=== PATIENT | male | born 1970 | race Caucasian/White ===

== ENCOUNTER 2017-03-15 09:54 | Emergency (ER) | payer OTHER ==
[2017-03-15] MEDS ORDERED: Sodium Chloride 0.9% 10 ML Syringe FLUSH PRN (10:14)
[2017-03-15] MEDS ORDERED: Sodium Chloride 0.9% 1,000 ML IV ONE (10:15)
[2017-03-15] MEDS ORDERED: HYDROmorphone 1 MG/ML Syringe IVPUSH ONE (10:15)
[2017-03-15] MEDS ORDERED: Ketorolac 30 MG/ML SDV IVPUSH ONE (10:15)
[2017-03-15] MEDS ORDERED: Ondansetron 4 MG/2 ML SDV IVPUSH ONE (10:15)
[2017-03-15 10:56] LABS: CHLORIDE,CL 103 mmol/L (98-107); SODIUM,NA 138 mmol/L (136-145)
[2017-03-15 11:28] VITALS: BP 136/72
[2017-03-15] MEDS ORDERED: Tamsulosin 0.4 MG Cap.ER PO ONE (13:16)
[2017-03-15] MEDS ORDERED: Take Home: Acetaminophen/HYDROcodone 325-10 MG, 5 Tab Pack PO ONE (14:05)
--- NOTE | 2017-03-19 06:09 | ER ---
Date of Service: 03/15/2017 SUBJECTIVE: Delta presents to the emergency room with complaints of severe right lower back/flank pain with radiation into his groin. He states that he was experiencing this intermittently yesterday and states that it has intensified on the morning of his arrival to the emergency room. He also complains of nausea, but no vomiting. He states that he is not experiencing any blood in his stool or urine. He denies any history of kidney stones in the past. His significant other states that he is a "terrible water drinker." PAST MEDICAL HISTORY: 1. Hypothyroidism. 2. Depression. 3. Anxiety. PAST SURGICAL HISTORY: 1. Adenoidectomy and tonsillectomy. 2. Appendectomy. 3. Carpal tunnel surgery. REVIEW OF SYSTEMS: Denies any fever, chills, chest pain, shortness of breath, decreased level of consciousness, or confusion. PHYSICAL EXAMINATION: General: This is a 47-year-old male patient who is in no acute distress. Vital Signs: Blood pressure is 136/72, pulse rate 75, temp is 35.5, and respiratory rate is 16. Skin: Warm, pink, and dry. HEENT. Head is normocephalic, atraumatic. Eyes: PERRLA. Extraocular movements are intact. Ears: TMs are clear. Mouth: Oral mucosa is moist. Lungs: Clear to auscultation. Heart: Regular rate and rhythm. Abdomen: Soft, nontender. There is no hepatosplenomegaly or masses noted. No significant CVA tenderness. Neurologic: He is alert, oriented, and answers all questions appropriately. LABORATORY DATA: WBC is 11.1, hemoglobin is 15.5, and platelets are 192. Chemistry: Sodium is 138, potassium is 4.4, chloride is 103, bicarb is 28, BUN is 15, creatinine is 1.4, GFR is 55, glucose is 128, calcium is 8.7, corrected calcium is 8.94, total bili is 0.5, AST is 27, ALT is 65, alk phos is 94, and total protein is 7.3. Urinalysis reveals a large occult blood, trace ketones, specific gravity is 1.030, negative for bilirubin and nitrates as well as leukocyte esterase. A CT scan of the patient's abdomen and pelvis was obtained that have evidence of a 3-mm stone at the right UVJ. EMERGENCY ROOM COURSE: IV access was established. He was given Dilaudid 1 mg IV as well as Zofran 4 mg IV. He was also given a liter of normal saline and was also given Flomax 0.4 mg p.o. Reported resolution of his symptoms. He remained stable under my care in the emergency room. ASSESSMENT: A 3-mm kidney stone with mild hydronephrosis. PLAN: The patient will be discharged. I did speak with Urology regarding this patient. We will start him on [place] 10/325 with instructions to take 1 to 2 every 4 to 6 hours as needed for pain. Also, started him on Flomax 0.4 mg once daily. Drink plenty of fluids. In addition, he can take ibuprofen 600 mg every 6 hours. All questions were answered. MWK: 03/19/2017 05:19:25 MODL: 03/19/2017 06:02:25 /[id number]
== END 2017-03-15 14:20 | disposition home or self-care (01) ==
LOC: VM.ED 09:54
DX: N13.2 Hydronephrosis with renal and ureteral calculous obstruction (principal); E03.9 Hypothyroidism, unspecified; F32.9 Major depressive disorder, single episode, unspecified; F41.9 Anxiety disorder, unspecified; Z90.49 Acquired absence of other specified parts of digestive tract; Z98.890 Other specified postprocedural states
CPT/HCPCS: 74176; 80053; 81001; 85025; 96361; 96374; 96375; 99284; A9270; J1170; J1885; J2405; J7030

== ENCOUNTER 2022-05-30 08:24 | Day surgery (SDC) | payer OTHER ==
[~2022-05-30 08:24] MED LIST: Lactated Ringers 1,000 ML IV SCH; Sodium Chloride 0.9% 10 ML Syringe FLUSH PRN
[2022-05-30] MEDS ORDERED: Propofol 200 MG/20 ML SDV ONE ×3 (09:26→10:40)
[2022-05-30] MEDS ORDERED: fentaNYL 100 MCG/2 ML SDV ONE (09:27)
[2022-05-30 11:40] VITALS: BP 157/49; PULSE 54
== END 2022-05-30 14:47 | disposition home or self-care (01) ==
LOC: VM.SDS 08:24
PROVIDERS: ATTEND Family Medicine
DX: K63.89 Other specified diseases of intestine (principal); G47.33 Obstructive sleep apnea (adult) (pediatric); E03.9 Hypothyroidism, unspecified; K21.9 Gastro-esophageal reflux disease without esophagitis; M19.90 Unspecified osteoarthritis, unspecified site; E78.2 Mixed hyperlipidemia; F32.A Depression, unspecified; H52.209 Unspecified astigmatism, unspecified eye; Z98.890 Other specified postprocedural states; Z87.891 Personal history of nicotine dependence; Z79.890 Hormone replacement therapy; Z79.899 Other long term (current) drug therapy; Z90.49 Acquired absence of other specified parts of digestive tract
CPT/HCPCS: 00811; 45380; J2704; J3010; J7120

== ENCOUNTER 2024-10-21 18:32 | Emergency (ER) | payer OTHER ==
[2024-10-21 19:10] LABS: BASOPHILS PERCENT AUTO 0.4 % (0.2-1.2); EOSINOPHILS PERCENT AUTO 0.3 % (0.0-4.0); HEMATOCRIT 42.8 % (40.0-52.0); HEMOGLOBIN 15.5 g/dL (14.0-18.0); IMMATURE GRAN ABSOLUTE AUTO 0.01 x10^3/uL (0.00-0.07); LYMPHOCYTES ABSOLUTE AUTO 0.9 x10^3/uL (1.0-4.8); LYMPHOCYTES PERCENT AUTO 11.8 % (25.0-50.0); MEAN CORPUSCULAR HEMOGLOBIN 31.3 pg (26.0-32.0); MEAN CORPUSCULAR HGB CONC 36.2 g/dL (32.0-36.0); MEAN CORPUSCULAR VOLUME 86.3 fL (78.0-93.0); MONOCYTES ABSOLUTE AUTO 0.4 x10^3/uL (0.0-0.8); MONOCYTES PERCENT AUTO 5.4 % (2.0-11.0); NEUTROPHILS ABSOLUTE AUTO 5.9 x10^3/uL (1.8-7.7); PLATELET COUNT,PLT 169 x10^3/uL (130-400); RED BLOOD CELL COUNT 4.96 x10^6/uL (4.5-6.0); WHITE BLOOD CELL COUNT,WBC 7.2 x10^3/uL (4.0-10.0)
[2024-10-21] MEDS: HYDROmorphone 0.5 MG/0.5 ML Syringe IVPUSH ONE (19:12)
[2024-10-21] MEDS: Ondansetron 4 MG/2 ML SDV IVPUSH ONE (19:12)
[2024-10-21 19:27] VITALS: BP 127/66; PULSE 72
[2024-10-21 19:30] LABS: A/G RATIO 1.41; ALBUMIN 4.8 g/dL (3.4-5.0); ANION GAP 18.5 mmol/L (5-15); BILIRUBIN TOTAL 1.2 mg/dL (0.2-1.0); CALCIUM 9.9 mg/dL (8.5-10.1); CREATININE 1.2 mg/dL (0.70-1.30); EST CRCL DRUG DOSING (CG) 73.92 mL/min; POTASSIUM,K 3.5 mmol/L (3.5-5.1); PROTEIN TOTAL,TP 8.2 g/dL (6.4-8.2)
== END 2024-10-21 19:46 | disposition home or self-care (01) ==
LOC: VM.ED 18:32
DX: K29.70 Gastritis, unspecified, without bleeding (principal); E78.00 Pure hypercholesterolemia, unspecified; E03.9 Hypothyroidism, unspecified; J21.9 Acute bronchiolitis, unspecified; Z90.49 Acquired absence of other specified parts of digestive tract; Z79.899 Other long term (current) drug therapy
CPT/HCPCS: 80053; 83690; 85025; 86140; 96374; 96375; 99284; J2405; 36415